=== PATIENT | male | born 1980 | race Caucasian/White ===

== ENCOUNTER 2020-05-26 12:24 | Emergency (ER) | payer OTHER ==
[~2020-05-26] VITALS: Ht 188 cm; Wt 93.0 kg
[~2020-05-26 12:24] MED LIST: Augmentin 875-1 EACH PO; CEPH500 PO; CYCL10 PO; IBUP600 PO; IBUP800 PO; METCAR750; NAPR500 PO; OXYC10ER; TRAM50 PO
[2020-05-26] MEDS ORDERED: IBUP800 PO (16:11)
== END 2020-05-26 16:25 | disposition home or self-care (01) ==
LOC: ER 12:24
DX: M76.62 Achilles tendinitis, left leg (principal); Z88.5 Allergy status to narcotic agent; Z59.0 Homelessness; Z87.891 Personal history of nicotine dependence
CPT/HCPCS: 99283; A9270

== ENCOUNTER 2021-01-23 15:30 | Emergency (ER) | payer OTHER ==
[~2021-01-23] VITALS: Ht 190.5 cm; Wt 90.7 kg
== END 2021-01-23 17:00 | disposition home or self-care (01) ==
LOC: ER 15:30
DX: S50.812A Abrasion of left forearm, initial encounter (principal); X58.XXXA Exposure to other specified factors, initial encounter
CPT/HCPCS: 99282

== ENCOUNTER 2021-12-01 20:41 | Emergency (ER) | payer OTHER ==
[~2021-12-01] VITALS: Ht 190.5 cm; Wt 93.0 kg
== END 2021-12-01 22:12 | disposition home or self-care (01) ==
LOC: ER 20:41
DX: L97.521 Non-pressure chronic ulcer of other part of left foot limited to breakdown of skin (principal); Z88.5 Allergy status to narcotic agent; Z87.891 Personal history of nicotine dependence
CPT/HCPCS: A9270

== ENCOUNTER 2022-07-22 03:00 | Emergency (ER) | payer OTHER | END 2022-07-22 03:32 | disposition left against medical advice (07) | LOC: ER 03:00 | DX: Z53.21 Procedure and treatment not carried out due to patient leaving prior to being seen by health care provider (principal) ==

== ENCOUNTER 2022-07-25 14:12 | Emergency (ER) | payer OTHER ==
[~2022-07-25] VITALS: Ht 190.5 cm; Wt 95.2 kg
[2022-07-25] MEDS ORDERED: IBUP800 PO (16:08)
== END 2022-07-25 16:31 | disposition home or self-care (01) ==
LOC: ER 14:12
DX: Z76.0 Encounter for issue of repeat prescription (principal); G89.29 Other chronic pain; M25.551 Pain in right hip; Z88.5 Allergy status to narcotic agent; Z87.891 Personal history of nicotine dependence
CPT/HCPCS: J1885

== ENCOUNTER 2022-07-31 14:36 | Emergency (ER) | payer OTHER ==
[~2022-07-31] VITALS: Ht 190.5 cm; Wt 93.0 kg
== END 2022-07-31 16:59 | disposition home or self-care (01) ==
LOC: ER 14:36
DX: T84.030A Mechanical loosening of internal right hip prosthetic joint, initial encounter (principal); Y79.2 Prosthetic and other implants, materials and accessory orthopedic devices associated with adverse incidents; Z87.891 Personal history of nicotine dependence; Z59.00 Homelessness unspecified
CPT/HCPCS: 73502; A9270

== ENCOUNTER 2022-08-03 19:33 | Emergency (ER) | payer OTHER ==
[~2022-08-03] VITALS: Ht 190.5 cm; Wt 93.0 kg
[2022-08-03] MEDS ORDERED: NAPR500 PO (23:35)
[2022-08-03] MEDS ORDERED: LIDO700A20 TOP (23:35)
== END 2022-08-04 00:03 | disposition home or self-care (01) ==
LOC: ER 19:33
DX: M25.551 Pain in right hip (principal); F17.210 Nicotine dependence, cigarettes, uncomplicated; Z96.641 Presence of right artificial hip joint; Z88.5 Allergy status to narcotic agent
CPT/HCPCS: 99283; A9270

== ENCOUNTER 2022-09-29 12:34 | Emergency (ER) | payer OTHER ==
[~2022-09-29] VITALS: Ht 188 cm; Wt 90.7 kg
[~2022-09-29 12:34] MED LIST changes: +LIDO700A20 TOP
[2022-09-29 13:32] VITALS: BP 134/92
== END 2022-09-29 15:39 | disposition left against medical advice (07) ==
LOC: ER 12:34
DX: R07.9 Chest pain, unspecified (principal); R50.9 Fever, unspecified; R25.1 Tremor, unspecified; Z53.21 Procedure and treatment not carried out due to patient leaving prior to being seen by health care provider; Z88.5 Allergy status to narcotic agent
CPT/HCPCS: 99281

== ENCOUNTER 2023-03-18 21:28 | Emergency (ER) | payer OTHER ==
[~2023-03-18] VITALS: Ht 190.5 cm; Wt 93.0 kg
[2023-03-18 21:51] VITALS: BP 125/72
== END 2023-03-18 22:04 | disposition home or self-care (01) ==
LOC: ER 21:28
DX: M25.551 Pain in right hip (principal); G89.29 Other chronic pain; F17.210 Nicotine dependence, cigarettes, uncomplicated; Z96.641 Presence of right artificial hip joint; Z88.5 Allergy status to narcotic agent
CPT/HCPCS: 99283

== ENCOUNTER 2023-11-15 16:45 | Emergency (ER) | payer OTHER ==
[~2023-11-15] VITALS: Ht 190.5 cm; Wt 95.2 kg
[2023-11-15 17:00] VITALS: BP 121/74
[2023-11-15] MEDS ORDERED: Ibuprofen 400 MG Tab PO ONE (17:05)
[2023-11-15] MEDS ORDERED: IBUP800 PO (17:13)
[2023-12-08] MEDS ORDERED: IBUP800 PO (18:38)
[2023-12-08] MEDS ORDERED: ACET500 PO (18:38)
== END 2023-11-15 18:16 | disposition home or self-care (01) ==
LOC: ER 16:45
DX: Z76.0 Encounter for issue of repeat prescription (principal); M25.551 Pain in right hip; Z59.00 Homelessness unspecified; Z88.5 Allergy status to narcotic agent; F17.210 Nicotine dependence, cigarettes, uncomplicated
CPT/HCPCS: 99283; A9270

== ENCOUNTER 2023-11-27 11:20 | Emergency (ER) | payer OTHER ==
[~2023-11-27] VITALS: Ht 182.9 cm; Wt 81.7 kg
[2023-11-27 13:35] VITALS: BP 127/78
== END 2023-11-27 13:37 | disposition home or self-care (01) ==
LOC: ER 11:20
DX: M25.551 Pain in right hip (principal); G89.29 Other chronic pain; F17.210 Nicotine dependence, cigarettes, uncomplicated; Z96.641 Presence of right artificial hip joint; Z88.5 Allergy status to narcotic agent
CPT/HCPCS: 99283

== ENCOUNTER 2024-01-27 02:33 | Emergency (ER) | payer OTHER ==
[~2024-01-27] VITALS: Ht 188 cm; Wt 93.0 kg
[~2024-01-27 02:33] MED LIST changes: +ACET500 PO
[2024-01-27 02:49] VITALS: BP 147/96
[2024-01-27] MEDS ORDERED: Ibuprofen 600 MG Tab PO ONE (03:00)
== END 2024-01-27 05:20 ==
LOC: ER 02:33
DX: M25.551 Pain in right hip (principal); Z53.21 Procedure and treatment not carried out due to patient leaving prior to being seen by health care provider
CPT/HCPCS: A9270

== ENCOUNTER 2024-03-09 18:20 | Emergency (ER) | payer OTHER ==
[~2024-03-09] VITALS: Ht 190.5 cm; Wt 83.9 kg
[2024-03-09 19:25] VITALS: BP 153/115
[2024-03-09] MEDS ORDERED: Doxycycline Hyclate 100 MG TAB PO ONE (19:30)
[2024-03-09] MEDS ORDERED: Vibramycin100 MG PO (19:32)
[2024-03-10] MEDS ORDERED: Vibramycin100 MG PO (01:12)
== END 2024-03-09 19:37 | disposition home or self-care (01) ==
LOC: ER 18:20
DX: L03.115 Cellulitis of right lower limb (principal); F17.210 Nicotine dependence, cigarettes, uncomplicated; Z88.5 Allergy status to narcotic agent
CPT/HCPCS: 99282; A9270

== ENCOUNTER 2024-03-10 00:48 | Emergency (ER) | payer OTHER ==
[~2024-03-10] VITALS: Ht 190.5 cm; Wt 90.7 kg
[~2024-03-10 00:48] MED LIST changes: +Vibramycin100 MG PO
[2024-03-10 01:02] VITALS: BP 154/94
[2024-03-10] MEDS ORDERED: Doxycycline Hyclate 100 MG TAB PO ONE (01:10)
[2024-03-10] MEDS ORDERED: Vibramycin100 MG PO (01:12)
== END 2024-03-10 01:24 | disposition home or self-care (01) ==
LOC: ER 00:48
DX: L03.115 Cellulitis of right lower limb (principal); F17.210 Nicotine dependence, cigarettes, uncomplicated; Z79.899 Other long term (current) drug therapy; Z88.5 Allergy status to narcotic agent
CPT/HCPCS: 99282; A9270

== ENCOUNTER 2024-07-23 20:56 | Emergency (ER) | payer OTHER ==
[~2024-07-23] VITALS: Ht 190.5 cm; Wt 88.5 kg
[2024-07-23 21:05] VITALS: BP 135/84
== END 2024-07-23 21:27 | disposition home or self-care (01) ==
LOC: ER 20:56
DX: Z00.8 Encounter for other general examination (principal); F17.210 Nicotine dependence, cigarettes, uncomplicated; Z88.5 Allergy status to narcotic agent
CPT/HCPCS: 99282

== ENCOUNTER 2024-11-26 11:52 | Emergency (ER) | payer OTHER ==
[~2024-11-26] VITALS: Ht 188 cm; Wt 77.0 kg
[2024-11-26 12:20] VITALS: BP 106/72
== END 2024-11-26 12:54 | disposition left against medical advice (07) ==
LOC: ER 11:52
DX: M25.551 Pain in right hip (principal); Z53.29 Procedure and treatment not carried out because of patient's decision for other reasons
CPT/HCPCS: 99282

== ENCOUNTER 2024-12-29 09:55 | Emergency (ER) | payer OTHER ==
[~2024-12-29] VITALS: Ht 190.5 cm; Wt 83.9 kg
[2024-12-29 10:24] VITALS: BP 113/76
[2024-12-29] MEDS ORDERED: NS 1,000 ML IV SCH (10:30)
== END 2024-12-29 10:40 | disposition left against medical advice (07) ==
LOC: ER 09:55
DX: E86.0 Dehydration (principal); T67.9XXA Effect of heat and light, unspecified, initial encounter; Z77.098 Contact with and (suspected) exposure to other hazardous, chiefly nonmedicinal, chemicals; F17.210 Nicotine dependence, cigarettes, uncomplicated; Z59.00 Homelessness unspecified; Z88.5 Allergy status to narcotic agent; Z79.899 Other long term (current) drug therapy
CPT/HCPCS: 99283

== ENCOUNTER 2024-12-30 07:26 | Emergency (ER) | payer OTHER ==
[~2024-12-30] VITALS: Ht 175.3 cm; Wt 68.0 kg
== END 2024-12-30 08:38 | disposition home or self-care (01) ==
LOC: ER 07:26
DX: Z02.89 Encounter for other administrative examinations (principal); M25.551 Pain in right hip; T30.0 Burn of unspecified body region, unspecified degree; Z88.5 Allergy status to narcotic agent; Z79.899 Other long term (current) drug therapy; F17.210 Nicotine dependence, cigarettes, uncomplicated
CPT/HCPCS: 99282